=== PATIENT | male | born 1980 | race Two or more races ===

== ENCOUNTER 2020-01-17 11:04 | Emergency (ER) | payer OTHER ==
[~2020-01-17] VITALS: Ht 167.6 cm; Wt 77.1 kg
[2020-01-17] MEDS ORDERED: cloNIDine HCL 0.1 MG TAB PO ONE (11:30)
[2020-01-17] MEDS ORDERED: TETRACAINE HCL 0.5% OPTH(EYE) SOLN 4ML EACHEYE ONE (12:30)
[2020-01-17] MEDS ORDERED: FLUORESCEIN SOD 1 MG TEST STRIP OP ONE (12:30)
[2020-01-17 13:15] VITALS: BP 118/86
[2020-01-17] MEDS ORDERED: ACETAMINOPHEN 325 MG TAB PO ONE (13:15)
[2020-01-17] MEDS ORDERED: TETANUS-DIPTH-ACEL PERTUSSIS 0.5ML SYR Tdap IM ONE (13:15)
== END 2020-01-17 13:35 | disposition home or self-care (01) ==
LOC: ER 11:04
DX: S00.83XA Contusion of other part of head, initial encounter (principal); S05.01XA Injury of conjunctiva and corneal abrasion without foreign body, right eye, initial encounter; S01.431A Puncture wound without foreign body of right cheek and temporomandibular area, initial encounter; I10 Essential (primary) hypertension; X58.XXXA Exposure to other specified factors, initial encounter; Y93.89 Activity, other specified; Y92.89 Other specified places as the place of occurrence of the external cause; Y99.0 Civilian activity done for income or pay
CPT/HCPCS: 70486; 90471; 90715